=== PATIENT | male | born 1955 | race Caucasian/White ===

== ENCOUNTER 2020-11-03 01:15 | Emergency (ER) | payer BC ==
[~2020-11-03] VITALS: Ht 185.4 cm; Wt 174.6 kg
[2020-11-03 01:34] VITALS: BP 137/76
[2020-11-03] MEDS ORDERED: AMLO-170 PO (01:43)
[2020-11-03] MEDS ORDERED: ATOR40TA PO (01:43)
[2020-11-03] MEDS ORDERED: NALT50TA PO (01:43)
[2020-11-03] MEDS ORDERED: BUPR150T13 PO (01:43)
[2020-11-03] MEDS ORDERED: AFRIN- Non-Preferred NS ONE (01:44)
--- NOTE | 2020-11-03 01:53 | ER.PDOC ---
General Chief Complaint: Nosebleed Stated Complaint: NOSEBLEED Time seen by MD: 01:50 Source: patient Exam Limitations: no limitations History of Present Illness Initial Comments Bleeding from the left nostril this morning. Patient takes a baby aspirin otherwise he is not on any blood thinners. He has had intermittent bleeding for a while now and has been follow-up by his PCP who plans to refer him to ENT for cauterization. Timing/Duration: gradual Location: left nare Severity: moderate Prior symptoms/Treatment: Similar symptoms previous Allergies: Coded Allergies: No Known Allergies (Unverified , 11/03/20) Home Meds Reported Medications Atorvastatin 40MG (LIPITOR 40MG) 40 Mg Tablet, 1 TAB PO HS, #90 TAB 1 Refill 11/03/20 Naltrexone Hcl (NALTREXONE HCL) 50 Mg Tablet, 1 TAB PO DAILY, #30 TAB 2 Refills 11/03/20 Bupropion Hcl (BUPROPION HCL SR) 150 Mg Tablet.er, 1 TAB PO BID, #60 TAB 5 Refills 11/03/20 Amlodipine Besylate (AMLODIPINE BESYLATE) 10 Mg Tablet, 1 TAB PO DAILY, #30 TAB 5 Refills 11/03/20 Constitutional: no symptoms reported Nose: see HPI Throat: no symptoms reported Respiratory: no symptoms reported Cardiovascular: no symptoms reported Gastrointestinal: no symptoms reported Musculoskeletal: no symptoms reported All Other Systems: Reviewed and Negative Past Medical History Medical History: high cholesterol, hypertension Surgical History: knee, tonsillectomy Family History Significant Family History: no pertinent family hx Social History Alcohol Use: none Drug Use: none Physical Exam General Appearance: alert, no distress Nose: minimal bleeding (left) Head/Neck: atraumatic, thyroid nml Eyes/Ears: eyes nml inspection, PERRL, no nystagmus, TM nml Mouth: lips, gums nml, pharynx nml NEURO/PSYCH: oriented X3, mood/effect nml Respiratory: no resp. distress CVS: reg. rate & rhythm, heart sounds nml Abdomen: non-tender, no organomegaly Skin Exam: Normal Color, Warm/Dry Nasal Packing Nasal Packing : Nasal Drops Instilled: Afrin Results/Orders Results/Orders Orders - TANISHA CAMACHO MD Oxymetazoline Hcl (Afrin- Non-Preferred) (11/03/20 01:44) Vital Signs Date Time Temp Pulse Resp B/P (MAP) Pulse Ox O2 Delivery O2 Flow Rate FiO2 11/03/20 01:34 98.0 88 16 137/76 (96) 94 Room Air 11/03/20 01:34 98.0 88 16 11/03/20 01:34 98.0 88 16 94 Progress Progress Bleeding well controlled with Afrin no spray. ER DEPART Departure Time of Disposition: 01:52 Disposition: 01 HOME, SELF-CARE Impression: Primary Impression: Epistaxis Condition: Improved Referrals: PCP,UNKNOWN (PCP) PRIMARY CARE PROVIDER Additional Instructions: Follow-up with your PCP in 1 to 2 days Follow-up with ENT in 2 to 3 days Return to ED if worsening bleeding or concerns Duration or Time Spent with Pa: 10 min TANISHA CAMACHO MD Nov 03, 2020 01:53
== END 2020-11-03 02:01 | disposition home or self-care (01) ==
LOC: ER 01:15
DX: R04.0 Epistaxis (principal); E78.00 Pure hypercholesterolemia, unspecified; I10 Essential (primary) hypertension; Z79.899 Other long term (current) drug therapy
CPT/HCPCS: 99282